=== PATIENT | male | born 1940 | race Caucasian/White ===

== ENCOUNTER 2019-07-22 19:34 | Emergency (ER) | payer MEDICARE, BC ==
--- NOTE | 2019-07-22 19:53 | EDM.PDOC ---
ED HPI GENERAL MEDICAL PROBLEM - General Chief Complaint: Laceration Stated Complaint: CUT ON EYEBROW Time Seen by Provider: 07/22/19 19:50 Source of Information: Reports: Patient, Family History Limitations: Reports: Other (Patient does not remember the fall.) - History of Present Illness INITIAL COMMENTS - FREE TEXT/NARRATIVE: 78-year-old male who reports that he was in his room this afternoon and remembered getting up to go to the window to open the window to "get some fresh air" and he doesn't remember anything bits and pieces. All of the stuff on his dresser crashing off and he reports being somewhat upset because things were broken. He does not remember what happened. He came out for dinner about 5 to 5: 30 PM and his sister who is his legal power of tax associate attorney noted that he had blood over the left forehead, left voodoo and left side of his head. She cleaned the area up and noticed a small cut over the left lateral eyebrow. The sister thinks that this occurred between 4 to 4:30 PM today. He was denying any pain. He could not tell her what happened. He did, however, continued to have bleeding from this area and they brought him into the emergency department for evaluation. No vomiting. No neck pain. No chest pain. He does not remember feeling weak or dizzy prior to this occurring. It was somewhat tissue inserter his room and the patient has had heat exhaustion before. He tells me that he feels completely well now and he denies any pain. He would rate his pain as a 0/10. Other associated signs or symptoms. There are no other modifying factors. Onset: Today (4 to 4:30 PM) Duration: Constant Location: Reports: Head (Left lateral eyebrow) Quality: Reports: Other (Denies) Improves with: Reports: None Worsens with: Reports: None Context: Reports: Trauma Associated Symptoms: Reports: No Other Symptoms Treatments [employer]: Reports: Other (see below) (Nothing) - Related Data Allergies Allergy/AdvReac Type Severity Reaction Status Date / Time seasonal Allergy Sneezing Uncoded 07/22/19 20:04 Home Meds: Home Meds Multivitamin [Multivitamins] cap PO DAILY 07/22/19 [History] Past Medical History HEENT History: Reports: Impaired Vision (Legally blind) Genitourinary History: Reports: Prostate Disorder Neurological History: Reports: 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 ED ROS GENERAL - Review of Systems Review Of Systems: See Below Constitutional: Reports: No Symptoms HEENT: Reports: Other (Left lateral eyebrow) Respiratory: Reports: No Symptoms Cardiovascular: Reports: No Symptoms Endocrine: Reports: No Symptoms GI/Abdominal: Reports: No Symptoms : Reports: No Symptoms Musculoskeletal: Reports: No Symptoms Skin: Reports: Wound Neurological: Reports: Syncope (Versus fall with loss of consciousness) Hematologic/Lymphatic: Reports: No Symptoms Immunologic: Reports: Other (Unknown when his last tetanus immunization was.) ED EXAM, SKIN/RASH Exam: See Below Exam Limited By: No Limitations General Appearance: Alert, WD/WN, No Apparent Distress Eye Exam: Bilateral Eye: EOMI, Normal Inspection Ears: Normal External Exam, Hearing Grossly Normal Nose: Normal Inspection, Normal Mucosa, No Blood Throat/Mouth: Normal Inspection, Normal Oropharynx, Normal Voice, No Airway Compromise Head: Normocephalic, Facial Swelling (With 2 cm shallow laceration to the left lateral eyebrow area.), Other (No crepitus. No bony deformity.) Neck: Normal Inspection, Supple, Non-Tender, Full Range of Motion Respiratory/Chest: No Respiratory Distress, Lungs Clear, Normal Breath Sounds, No Accessory Muscle Use, Chest Non-Tender Cardiovascular: Normal Peripheral Pulses, Regular Rate, Rhythm, No Murmur Peripheral Pulses: 2+: Radial (L), Radial (R) GI/Abdominal: Normal Bowel Sounds, Soft, Non-Tender Back Exam: Normal Inspection Extremities: Normal Inspection, Normal Range of Motion, Non-Tender, No Pedal Edema, Normal Capillary Refill Neurological: Alert, Oriented, CN II-XII Intact, No Motor/Sensory Deficits Skin: Warm, Dry, Normal Color, No Rash, Wound/Incision (Laceration to the left lateral eyebrows above.) Location, Skin: Face (Left lateral eyebrow) Characteristics: Linear ED SKIN PROCEDURES - Laceration/Wound Repair Left Lateral Other Appearance: Superficial (Left lateral eyebrow laceration) Distal NVT: Neuro & Vascular Intact Anesthetic Type: Topical Skin Prep: Saline Closed with: Dermabond Lac/Wound length In cm: 1.5 Tetanus Status Addressed: Yes (The patient was given a Tdap immunization to bring his tetanus immunization status up-to-date.) Complications: No Progress/Comments: The wound was closed using Dermabond. The patient tolerated this well and there are no apparent palpitations. EKG INTERPRETATION EKG Date: 07/22/19 Time: 19:55 Rhythm: NSR Rate (Beats/Min): 87 [place]: LAD-Left [place] Deviation (Left anterior fascicular block) P-Wave: Present QRS: Normal ST-T: Normal QT: Normal NV/PQ Interval: Abnormal R-wave progression with late transition Comparison: NA - No Prior EKG (No current of injury or ischemia.) Course - Vital Signs Last Recorded V/S: Last Vital Signs Temp 36.4 C 07/22/19 20:00 Pulse 79 07/22/19 20:00 Resp 17 07/22/19 20:00 BP 163/88 H 07/22/19 20:00 Pulse Ox 97 07/22/19 20:00 - Orders/Labs/Meds Orders: Active Orders 24 hr Category Date Time Status EKG Documentation Completion [RC] ASDIRECTED Care 07/22/19 20:13 Active Vaccines to be Administered [RC] PER UNIT ROUTINE Care 07/22/19 20:14 Active Cervical Spine wo Cont [CT] Stat Exams 07/22/19 20:11 Ordered Head wo Cont [CT] Stat Exams 07/22/19 20:11 Ordered Sodium Chloride 0.9% [Saline Flush] Med 07/22/19 20:13 Active 10 ml FLUSH ASDIRECTED PRN Peripheral IV Insertion Adult [OM.PC] Routine Oth 07/22/19 20:13 Ordered EKG 12 Lead [EK] Routine Ther 07/22/19 20:11 Ordered Medication Orders Sodium Chloride (Saline Flush) 10 ml FLUSH ASDIRECTED PRN PRN Reason: Keep Vein Open Labs: Laboratory Tests 07/22/19 07/22/19 Range/Units 20:30 20:30 WBC 9.6 (4.5-12.0) X10-3/uL RBC 5.43 (4.30-5.75) x10(6)uL Hgb 15.1 (13.5-17.8) g/dL Hct 46.1 (30.0-51.3) % MCV 85.0 (80-96) fL MCH 27.9 (27.7-33.6) pg MCHC 32.8 (32.2-35.4) g/dL RDW 12.7 (11.5-15.5) % Plt Count 212 (125-369) X10(3)uL MPV 8.5 (7.4-10.4) fL Neut % (Auto) 83.4 H (46-82) % Lymph % (Auto) 10.1 L (13-37) % [place] % (Auto) 5.6 (4-12) % Eos % (Auto) 1 (1.0-5.0) % Baso % (Auto) 0 (0-2) % Neut # (Auto) 8.0 (1.6-8.3) # Lymph # (Auto) 1.0 (0.6-5.0) # [place] # (Auto) 0.5 (0.0-1.3) # Eos # (Auto) 0.1 (0.0-0.8) # Baso # (Auto) 0.0 (0.0-0.2) # Sodium 141 (135-145) mmol/L Potassium 4.1 (3.5-5.3) mmol/L Chloride 105 (100-110) mmol/L Carbon Dioxide 26 (21-32) mmol/L BUN 13 (7-18) mg/dL Creatinine 1.1 (0.70-1.30) mg/dL Est Cr Clr Drug Dosing 58.00 mL/min Estimated GFR (MDRD) > 60 (>60) BUN/Creatinine Ratio 11.8 (9-20) Glucose 139 H (80-116) mg/dL Calcium 8.9 (8.6-10.2) mg/dL Magnesium 1.9 (1.8-2.5) mg/dL Total Bilirubin 0.3 (0.1-1.3) mg/dL AST 21 (5-25) IU/L ALT 26 (12-36) U/L Alkaline Phosphatase 76 (56-112) IU/L Total Protein 7.1 (6.0-8.0) g/dL Albumin 3.6 (3.2-4.6) g/dL Globulin 3.5 g/dL Albumin/Globulin Ratio 1.0 Meds: Medications Generic Name Dose Route Start Last Admin Trade Name Raviq PRN Reason Stop Dose Admin Sodium Chloride 10 ml 07/22/19 20:13 Saline Flush FLUSH ASDIRECTED PRN Keep Vein Open Discontinued Medications Generic Name Dose Route Start Last Admin Trade Name Freq PRN Reason Stop Dose Admin Diphtheria/Tetanus/Acell Pertussis 0.5 ml 07/22/19 20:14 07/22/19 20:46 Adacel IM 07/22/19 20:15 0.5 ml .ONCE ONE Administration Sodium Chloride 1,000 mls @ 999 mls/hr 07/22/19 20:14 07/22/19 20:38 Normal Saline IV 07/22/19 21:14 999 mls/hr .BOLUS ONE Administration Lidocaine/Tetracaine 5 ml 07/22/19 20:39 07/22/19 20:47 Let Soln TOP 07/22/19 20:40 5 ml ONETIME ONE Administration - Radiology Interpretation Free Text/Narrative:: CT scan of head showed no evidence of acute intracranial hemorrhage, mass effect or loss of diane-white differentiation. There is evidence of old injury and mild left maxillary sinus disease. Us was per the radiologist. CT scan of the cervical spine showed a fragmented large anterior osteophyte at the C5-C6 level. It was corticated and age-indeterminate. This was per the radiologist. The patient has no pain in his neck. He has full active range of motion in his neck without any discomfort. - Re-Assessments/Exams Free Text/Narrative Re-Assessment/Exam: 07/22/19 21:40: Patient walked to the bathroom and did have some mild dizziness when he got back to bed. His blood pressure was 170/90 at that point. Symptoms are completely resolved now and he has no headache, neck pain, chest pain or shortness of breath. All of his blood tests are reassuring. The EKG was reassuring. The CT scans of his head and neck really showed no acute abnormality and the patient is also once again having no symptoms at this time which would include no pain and active range of motion in his neck. At this point the wound was cleaned with saline and Dermabond was applied. He appears to be stable for discharge and the patient and his sister/guardian/power of tax associate attorney is agreeable for discharge at this point. Departure - Departure Time of Disposition: 22:10 Disposition: Home, Self-Care 01 Condition: Good (Improved) Clinical Impression: Loss of consciousness Laceration of left eyebrow Qualifiers: Encounter type: initial encounter Qualified Code(s): S01.112A - Laceration without foreign body of left eyelid and periocular area, initial encounter Fall from standing Qualifiers: Encounter type: initial encounter Qualified Code(s): W19.XXXA - Unspecified fall, initial encounter Closed head injury Qualifiers: Encounter type: initial encounter Qualified Code(s): S09.90XA - Unspecified injury of head, initial encounter - Discharge Information Instructions: Head Injury, Adult, [id number], Sutures, [place], or Adhesive Wound Closure, [id number], Syncope, [id number] Referrals: Frank Dean MD [Primary Care Provider] - Forms: ED Department Discharge Additional Instructions: His blood tests were reassuringly normal. EKG showed no evidence of a heart attack and the rhythm was normal. The CAT scans of his head and neck showed no acute problem. There were no acute fractures or bleeding. I am unsure what caused his fall. He may have had a pass out or syncopal episode. He may also have had a weak episode related to mild heat exhaustion and fell and hit his head and was knocked unconscious. He was given IV fluids in the emergency department to heat exhaustion. He should rest. Drink plenty of fluids. He should avoid any hot environments. No strenuous activity for the next few days. Back to the emergency department for further pass out spells, chest pain, shortness of breath, vomiting, severe headache or any other concerning sign or symptom. He should follow-up with his primary provider this week or the beginning of next week. Sepsis Event Note - Focused Exam Vital Signs: Vital Signs Temp Pulse Resp BP Pulse Ox 07/22/19 20:00 36.4 C 79 17 163/88 H 97 Date Exam was Performed: 07/22/19 Time Exam was Performed: 22:23 - My Orders Last 24 Hours: My Active Orders 07/22/19 20:11 Cervical Spine wo Cont [CT] Stat Head wo Cont [CT] Stat EKG 12 Lead [EK] Routine 07/22/19 20:13 EKG Documentation Completion [RC] ASDIRECTED Sodium Chloride 0.9% [Saline Flush] 10 ml FLUSH ASDIRECTED PRN Peripheral IV Insertion Adult [OM.PC] Routine 07/22/19 20:14 Vaccines to be Administered [RC] PER UNIT ROUTINE - Assessment/Plan Last 24 Hours: My Active Orders 07/22/19 20:11 Cervical Spine wo Cont [CT] Stat Head wo Cont [CT] Stat EKG 12 Lead [EK] Routine 07/22/19 20:13 EKG Documentation Completion [RC] ASDIRECTED Sodium Chloride 0.9% [Saline Flush] 10 ml FLUSH ASDIRECTED PRN Peripheral IV Insertion Adult [OM.PC] Routine 07/22/19 20:14 Vaccines to be Administered [RC] PER UNIT ROUTINE
[2019-07-22] MEDS ORDERED: Sodium Chloride 0.9% 10 ML Syringe FLUSH PRN (20:13)
[2019-07-22] MEDS ORDERED: Sodium Chloride 0.9% 1,000 ML IV ONE (20:14)
[2019-07-22] MEDS ORDERED: Diphtheria,Pertussis(Acell),Tetanus Vaccine 0.5 ML SDV IM ONE (20:14)
[2019-07-22] MEDS ORDERED: Lidocaine/EPINEPHrine/Tetracaine Soln 5 ML Each TOP ONE (20:39)
== END 2019-07-22 22:24 | disposition home or self-care (01) ==
LOC: FB.ED 19:34
DX: S06.9X9A Unspecified intracranial injury with loss of consciousness of unspecified duration, initial encounter (principal); S01.112A Laceration without foreign body of left eyelid and periocular area, initial encounter; Z88.8 Allergy status to other drugs, medicaments and biological substances; Z79.899 Other long term (current) drug therapy; Z23 Encounter for immunization; W18.30XA Fall on same level, unspecified, initial encounter
CPT/HCPCS: 12011; 36415; 70450; 80053; 83735; 85025; 90471; 90715; 93005; 96360; 99284; A9270; J7030; 72125